=== PATIENT | male | born 1995 | race Asian ===

== ENCOUNTER → 2022-05-10 | Outpatient (CLI) | payer BC ==
[2022-05-10 11:01] LABS: BASOPHILS % 0.6 % (0.0-2.0); EOSINOPHILS % 0.7 % (0.0-5.0); HEMATOCRIT. 45.2 % (42.0-52.0); HEMOGLOBIN. 15.2 g/dL (14.0-18.0); LYMPHOCYTES % 21.7 % (20.0-50.0); MEAN CORPUSCULAR HEMOGLOBIN 28.7 pg (28.0-32.0); MEAN CORPUSCULAR VOLUME 85.3 fL (80.0-94.0); MEAN PLATELET VOLUME 7.1 fl (7.4-10.4); MONOCYTES % 11.7 % (2.0-8.0); NEUTROPHILS % 65.3 % (40.0-76.0); PLATELET 252 x1000/uL (130-400); RED CELL DISTRIBUTION WIDTH 13.2 % (11.6-14.6)
[2022-05-10 11:10] LABS: CHLORIDE 110 mEq/L (98-107)
== END | disposition home or self-care (01) ==
LOC: LAB 10:37
PROVIDERS: ATTEND Family Medicine Adult Medicine
DX: L02.31 Cutaneous abscess of buttock (principal)
CPT/HCPCS: 36415; 80053; 85025

== ENCOUNTER 2022-05-12 11:32 | Emergency (ER) | payer BC ==
[~2022-05-12] VITALS: Ht 170.2 cm; Wt 6.0 kg
[2022-05-12 11:48] VITALS: BP 177/88
[2022-05-12] MEDS ORDERED: LIDOCAINE HCL 1% 20ML VIAL (Pyxis) INJ INFIL ONE (16:30)
[2022-05-12] MEDS ORDERED: LIDOCAINE HCL 1% 10 MG/ML 10ML VIAL INJ NR (17:00)
[2022-05-12] MEDS ORDERED: ACETAMINOPHEN 325MG TABLET PO ONE (17:45)
== END 2022-05-12 17:59 | disposition home or self-care (01) ==
LOC: ER 11:32
DX: K61.0 Anal abscess (principal)
CPT/HCPCS: 10060; 99284; J3490; Z7610

== ENCOUNTER 2024-02-04 11:59 | Emergency (ER) | payer BC ==
[~2024-02-04] VITALS: Ht 172.7 cm; Wt 73.0 kg
[2024-02-04 12:13] VITALS: O2SAT 95
[2024-02-04 14:26] LABS: CLARITY URINE CLEAR (CLEAR); COLOR URINE DARK YELLOW (YELLOW); GLUCOSE URINE NEGATIVE (NEGATIVE); KETONES URINE TRACE (NEGATIVE); LEUKOCYTE ESTERASE URINE NEGATIVE (NEGATIVE); NITRITE URINE NEGATIVE (NEGATIVE); OCCULT BLOOD URINE NEGATIVE (NEGATIVE); PROTEIN URINE NEGATIVE (NEGATIVE); SPECIFIC GRAVITY URINE 1.028 (1.005-1.030)
[2024-02-04] MEDS: DOXYCYCLINE HYCLATE 100MG CAPSULE PO ONE (16:19)
[2024-02-04] MEDS ORDERED: DOXY100C5 MT (16:19)
[2024-02-04] MEDS: CEFTRIAXONE SODIUM 1G VIAL IM ONE (16:19)
[2024-02-04] MEDS: LIDOCAINE HCL 1% 20ML VIAL (Pyxis) INJ INFIL ONE (16:22)
[2024-02-04 17:00] VITALS: BP 120/70; PULSE 88; RESP 20; TEMP 98
[2024-02-07 04:11] LABS: CHLAMYDIA TRACHOMATIS NAA Negative (Negative); NEISSERIA GONORRHOEAE NAA Negative (Negative)
== END 2024-02-04 17:03 | disposition home or self-care (01) ==
LOC: ER 12:28
DX: R30.0 Dysuria (principal); E78.5 Hyperlipidemia, unspecified; M10.9 Gout, unspecified
CPT/HCPCS: 99283; 87491; 87591; 81003; 96372; J0696; J3490